=== PATIENT | female | born 1985 | race African-American/Black ===

== ENCOUNTER 2022-06-20 16:12 | Emergency (ER) | payer MEDICAID ==
[~2022-06-20] VITALS: Ht 162.6 cm; Wt 58.1 kg
--- NOTE | 2022-06-20 17:29 | NUR ---
PT SEEN AND EVALUATED BY DR HAYES. TO RADIOLOGY VIA .
--- NOTE | 2022-06-20 19:46 | NUR ---
Patient discharged to home in stable condition. Written and verbal after care instructions given. Patient verbalizes understanding of instructions. Stressed follow up or return to ER for worsening s/s.
== END 2022-06-20 19:47 | disposition home or self-care (01) ==
LOC: ER 16:12
DX: R51.9 Headache, unspecified (principal); M54.2 Cervicalgia; M25.552 Pain in left hip; M25.522 Pain in left elbow; E04.9 Nontoxic goiter, unspecified; V49.59XA Passenger injured in collision with other motor vehicles in traffic accident, initial encounter; Y92.410 Unspecified street and highway as the place of occurrence of the external cause
CPT/HCPCS: 70450; 72125; 73080; 73502; A4663